=== PATIENT | female | born 1990 | race American Indian/Alaskan Native ===

== ENCOUNTER 2018-06-13 10:09 | Emergency (ER) | payer MEDICAID ==
--- NOTE | 2018-06-13 11:25 | Emergency Department Report ---
ED General Adult HPI - General Chief complaint: Overdose Stated complaint: OVERDOSE Time Seen by Provider: 06/13/18 10:58 Source: patient Mode of arrival: Ambulatory Limitations: No Limitations - History of Present Illness Initial comments: 28-year-old female presents to the ED after smoking marijuana. Patient concerned it may have been laced with something. Patient states she smokes marijuana regularly, however today she states she doesn't feel like her normal self, she feels paranoid, she feels like her body is moving when it isn't. -: This morning Consistency: constant Improves with: none Worsens with: none Associated Symptoms: denies: chest pain, headaches, nausea/vomiting, shortness of breath - Related Data Previous Rx's Medication Instructions Recorded Last Taken Type Vits96/Iron Fum/Folic 1 each PO QDAY 30 Days tablet 07/08/13 02/12/14 Rx [ Tablet] Ibuprofen [Motrin] 800 mg PO Q8H PRN #30 tablet 02/28/14 Unknown Rx Lidocaine/Prilocaine [Emla Cream] 5 gm TP ONCE #1 cream..g. 02/28/14 Unknown Rx oxyCODONE /ACETAMINOPHEN [Percocet 1 - 2 tab PO Q6HR PRN #30 tablet 02/28/14 Unknown Rx 5/325] Allergies Allergy/AdvReac Type Severity Reaction Status Date / Time No Known Allergies Allergy Verified 07/07/13 22:35 ED Review of Systems ROS: Stated complaint: OVERDOSE Other details as noted in HPI Comment: All other systems reviewed and negative Constitutional: denies: chills, fever Respiratory: denies: shortness of breath Cardiovascular: palpitations. denies: chest pain Gastrointestinal: denies: nausea, vomiting Psychiatric: anxiety ED Past Medical Hx - Past Medical History Previous Medical History?: No Hx Hypertension: No Hx Diabetes: No Hx Deep Vein Thrombosis: No Hx Renal Disease: No Hx Sickle Cell Disease: No Hx Seizures: No Hx Asthma: No Hx HIV: No - Surgical History Past Surgical History?: No Additional Surgical History: - Social History Smoking Status: Current Every Day Smoker Substance Use Type: Marijuana - Medications Home Medications: Home Medications Medication Instructions Recorded Confirmed Last Taken Type Vits96/Iron Fum/Folic 1 each PO QDAY 30 Days tablet 07/08/13 02/28/14 02/12/14 Rx [ Tablet] Ibuprofen [Motrin] 800 mg PO Q8H PRN #30 tablet 02/28/14 Unknown Rx Lidocaine/Prilocaine [Emla Cream] 5 gm TP ONCE #1 cream..g. 02/28/14 Unknown Rx oxyCODONE /ACETAMINOPHEN [Percocet 1 - 2 tab PO Q6HR PRN #30 tablet 02/28/14 Unknown Rx 5/325] ED Physical Exam - General Limitations: No Limitations General appearance: alert, anxious - Head Head exam: Present: atraumatic, normocephalic - Eye Eye exam: Present: normal appearance - ENT ENT exam: Present: mucous membranes moist - Neck Neck exam: Present: normal inspection - Respiratory Respiratory exam: Present: normal lung sounds bilaterally. Absent: respiratory distress - Cardiovascular Cardiovascular Exam: Present: normal rhythm, tachycardia - GI/Abdominal GI/Abdominal exam: Present: soft. Absent: distended - Extremities Exam Extremities exam: Present: normal inspection - Neurological Exam Neurological exam: Present: alert, oriented X3, CN II-XII intact. Absent: motor sensory deficit - Psychiatric Psychiatric exam: Present: anxious - Skin Skin exam: Present: warm, dry, intact, normal color ED Course Vital Signs 06/13/18 06/13/18 10:17 11:15 Temperature 97.9 F Pulse Rate 131 H 116 H Respiratory 22 14 Rate Blood Pressure 145/85 Blood Pressure 130/97 [Left] O2 Sat by Pulse 100 100 Oximetry ED Medical Decision Making - EKG Data -: EKG Interpreted by Me EKG shows normal: sinus rhythm, axis, intervals, QRS complexes, ST-T waves Rate: tachycardia (rate 107) - Medical Decision Making Patient feelimg much better. HR has normalized to the 70s. Patient able to rest and get some sleep while here in ED. Patient feeling much better. UDS positive for marijuana only. Patient's symptoms consistent with marijuana use. Will discharge at this time. Return precautions given. - Differential Diagnosis marijuana use, cocaine use, amphetamine use Critical care attestation.: If time is entered above; I have spent that time in minutes in the direct care of this critically ill patient, excluding procedure time. ED Disposition Clinical Impression: Marijuana use Disposition: DC-01 TO HOME OR SELFCARE Is pt being admited?: No Condition: Stable Instructions: Cannabis Abuse (ED) Referrals: PRIMARY CARE, [Primary Care Provider] - 3-5 Days Time of Disposition: 13:05
[2018-06-13 12:02] LABS: HCG Qualitative,Urine Negative (Negative)
[2018-06-13 12:36] LABS: Amphetamine Screen,Urine PRESUMPTIVE NEGATIVE; Benzodiazepines Screen,Urine PRESUMPTIVE NEGATIVE; Cocaine Screen,Urine PRESUMPTIVE NEGATIVE; Methadone Screen,Urine PRESUMPTIVE NEGATIVE; Opiate Screen,Urine PRESUMPTIVE NEGATIVE
[2018-06-13 12:50] LABS: Cannabinoid Screen,Urine PRESUMPTIVE POSITIVE
[2018-06-13 13:50] VITALS: BP 106/78
== END 2018-06-13 13:20 | disposition home or self-care (01) ==
LOC: ED 10:09
DX: F41.9 Anxiety disorder, unspecified (principal); F12.10 Cannabis abuse, uncomplicated; F17.200 Nicotine dependence, unspecified, uncomplicated
CPT/HCPCS: 80307; 81025; 93005; 93010